=== PATIENT | male | born 1935 | race Caucasian/White ===

== ENCOUNTER → 2018-12-24 | Outpatient (CLI) | payer MEDICARE, OTHER | END | disposition home or self-care (01) | LOC: SHCH 10:00 | PROVIDERS: ATTEND Internal Medicine Cardiovascular Disease | DX: I73.9 Peripheral vascular disease, unspecified (principal) | CPT/HCPCS: 93922 ==

== ENCOUNTER 2020-11-20 07:54 | Inpatient (IN) | payer MEDICARE, OTHER ==
[~2020-11-20] VITALS: Ht 177.8 cm; Wt 76.1 kg
[2020-11-20 08:14] VITALS: BP 169/70
[2020-11-20 08:15] LABS: APPEARANCE,URINE Clear (CLEAR); BILIRUBIN,URINE Negative (NEGATIVE); COLOR,URINE Yellow (YELLOW); GLUCOSE, URINE (UA) >=1000 mg/dL (NEGATIVE); KETONES,URINE 15 mg/dL (NEGATIVE); LEUKOCYTE ESTERASE ,URINE Negative (NEGATIVE); NITRATE,URINE Negative (NEGATIVE); OCCULT BLOOD,URINE Negative (NEGATIVE); PROTEIN,URINE POS 1+ mg/dL (NEGATIVE)
[2020-11-20 08:23] LABS: BASOPHILS % (AUTO) 0.7 % (0.0-5.0); EOSINOPHILS % (AUTO) 0.5 % (0.0-8.0); HEMATOCRIT 42.3 % (42-54); LYMPHOCYTES % (AUTO) 15.4 % (21.0-51.0); MEAN CORPUSCULAR HEMOGLOBIN 29.2 pg (27.0-33.0); MEAN CORPUSCULAR HGB CONC 33.3 g/dL (32.0-36.0); MEAN CORPUSCULAR VOLUME 87.6 fL (79-99); MONOCYTES % (AUTO) 5.1 % (3.0-13.0); NEUTROPHILS % (AUTO) 77.9 % (40.0-77.0); PLATELET COUNT (AUTO) 204 K/uL (130-400); RED BLOOD CELL COUNT(AUTO) 4.83 MIL/uL (4.50-6.20); RED CELL DISTRIBUTION WIDTH 12.7 % (11.0-15.5); WHITE BLOOD COUNT (AUTO) 10.7 K/uL (4.8-10.8)
[2020-11-20] MEDS ORDERED: MAG/ALUM/SIMETH 30 ML UDCUP PO SCH (08:30)
[2020-11-20] MEDS ORDERED: ONDANSETRON 4MG INJ IVP SCH (08:30)
[2020-11-20] MEDS ORDERED: LIDOCAINE HCL 2% VISCOUS 15 ML UDCUP PO SCH (08:30)
[2020-11-20] MEDS ORDERED: LACTATED RINGERS 1000ML 1,000 ML IV SCH (08:30)
[2020-11-20] MEDS ORDERED: KETOROLAC 15MG/ML VIAL (15MG/ML) IV SCH (08:30)
[2020-11-20 08:33] LABS: BACTERIA,URINE Rare /HPF (None Seen); RBC,URINE None Seen /HPF (0-1); SQUAMOUS EPITHELIAL CELL,UR 0-2 /HPF (0-2); WBC,URINE 0-1 /HPF (0-1)
[2020-11-20 08:40] LABS: ALBUMIN 4.2 g/dL (3.5-5.0); BILIRUBIN,TOTAL 0.4 mg/dL (0.2-1.0); CREATININE 1.4 mg/dL (0.5-1.5); POTASSIUM 4.2 mmol/L (3.5-5.1); TOTAL PROTEIN, SERUM 8.1 g/dL (6.0-8.3)
[2020-11-20] MEDS ORDERED: ACETAMINOPHEN 325 MG TAB PO PRN (11:30)
[2020-11-20] MEDS ORDERED: ZOSYN 3.375GM+NS 50ML 50 ML IV SCH ×2 (11:30→13:00)
[2020-11-20] MEDS: LACTATED RINGERS 1000ML 1,000 ML IV SCH (11:30)
[2020-11-20] MEDS ORDERED: HYDRALAZINE 20MG/ML VIAL IV PRN (11:30)
[2020-11-20] MEDS ORDERED: ONDANSETRON 4MG INJ IV PRN (11:30)
[2020-11-20] MEDS ORDERED: MORPHINE 4 MG SYG IV PRN (11:30)
[2020-11-20] MEDS ORDERED: 0.9%NACL 50ML 50 ML IV ONE (11:47)
[2020-11-20] MEDS: FAMOTIDINE 20MG VIAL IV SCH (11:51)
[2020-11-20 12:44] LABS: HEMOGLOBIN A1C 7.8 % (4.0-6.0)
[2020-11-20 13:00] VITALS: BP 165/96
[2020-11-20 13:24] LABS: AMPHET/METH SCREEN,URINE NEGATIVE (NEGATIVE); BARBITURATE SCREEN, URINE NEGATIVE (NEGATIVE); BENZODIAZEPINES SCREEN,URINE NEGATIVE (NEGATIVE); CANNABINOID SCREEN,URINE NEGATIVE (NEGATIVE); COCAINE SCREEN,URINE NEGATIVE (NEGATIVE); OPIATE SCREEN,URINE NEGATIVE (NEGATIVE); PHENCYCLIDINE SCREEN,URINE NEGATIVE (NEGATIVE)
[2020-11-20 14:38] LABS: CHOLESTEROL 139 mg/dL (<200); HDL CHOLESTEROL 56 mg/dL (29-71); LDL DIRECT 61 mg/dL (0-99); TRIGLYCERIDES 125 mg/dL (30-200)
[2020-11-20 16:00] VITALS: BP 148/73
[2020-11-20] MEDS ORDERED: INSULIN HUMULIN R 100 UNIT/ML 3ML SQ SCH (16:30)
[2020-11-20] MEDS ORDERED: AMLODIPINE 5 MG TAB PO ONE (18:00)
[2020-11-20] MEDS: INSULIN HUMULIN R 100 UNIT/ML 3ML SQ SCH (18:00)
[2020-11-20] MEDS ORDERED: LOSARTAN 50 MG TABLET PO SCH (18:00)
[2020-11-20 20:13] VITALS: BP 124/76
[2020-11-20] MEDS ORDERED: AMLODIPINE 5 MG TAB ONE (20:46)
[2020-11-20] MEDS: ZOSYN 3.375GM+NS 50ML 50 ML IV SCH (20:56)
[2020-11-20 23:55] VITALS: BP 149/68
[2020-11-21 03:44] VITALS: BP 139/68
[2020-11-21 05:30] LABS: BASOPHILS % (AUTO) 0.4 % (0.0-5.0); EOSINOPHILS % (AUTO) 0.2 % (0.0-8.0); HEMATOCRIT 41.9 % (42-54); LYMPHOCYTES % (AUTO) 8.9 % (21.0-51.0); MEAN CORPUSCULAR HEMOGLOBIN 29.3 pg (27.0-33.0); MEAN CORPUSCULAR HGB CONC 33.4 g/dL (32.0-36.0); MEAN CORPUSCULAR VOLUME 87.7 fL (79-99); MONOCYTES % (AUTO) 9.9 % (3.0-13.0); NEUTROPHILS % (AUTO) 80.1 % (40.0-77.0); PLATELET COUNT (AUTO) 209 K/uL (130-400); RED BLOOD CELL COUNT(AUTO) 4.78 MIL/uL (4.50-6.20); RED CELL DISTRIBUTION WIDTH 12.8 % (11.0-15.5); WHITE BLOOD COUNT (AUTO) 12.3 K/uL (4.8-10.8)
[2020-11-21] MEDS: ZOSYN 3.375GM+NS 50ML 50 ML IV SCH ×3 (05:45→20:36)
[2020-11-21 05:52] LABS: ALBUMIN 3.7 g/dL (3.5-5.0); BILIRUBIN,TOTAL 1.1 mg/dL (0.2-1.0); CREATININE 1.5 mg/dL (0.5-1.5); POTASSIUM 4.3 mmol/L (3.5-5.1); TOTAL PROTEIN, SERUM 7.5 g/dL (6.0-8.3)
[2020-11-21] MEDS: INSULIN HUMULIN R 100 UNIT/ML 3ML SQ SCH ×4 (06:00→16:44)
[2020-11-21 07:30] VITALS: BP 152/87
[2020-11-21] MEDS: LACTATED RINGERS 1000ML 1,000 ML IV SCH ×2 (07:30→18:00)
[2020-11-21] MEDS ORDERED: ENOXAPARIN SODIUM 30 MG/0.3 ML SQ SCH (09:00)
[2020-11-21] MEDS: FAMOTIDINE 20MG VIAL IV SCH (09:44)
[2020-11-21] MEDS: AMLODIPINE 5 MG TAB PO SCH (09:44)
[2020-11-21 11:00] VITALS: BP 165/80
[2020-11-21] MEDS ORDERED: AMLO-258 PO (11:31)
[2020-11-21] MEDS ORDERED: ROSU5TAB12 PO (11:31)
[2020-11-21] MEDS ORDERED: LOSA100T58 PO (11:31)
[2020-11-21] MEDS ORDERED: MELA1TAB21 PO (11:31)
[2020-11-21] MEDS ORDERED: EZET10TA48 PO (11:31)
[2020-11-21] MEDS ORDERED: METO25TA6 PO (11:31)
[2020-11-21] MEDS ORDERED: VITAD50000 PO (11:31)
[2020-11-21] MEDS ORDERED: METF-444 PO (11:31)
[2020-11-21] MEDS ORDERED: AEC81 PO (11:31)
[2020-11-21] MEDS ORDERED: SEMA1PEN3 SQ (11:31)
[2020-11-21] MEDS: METOPROLOL TARTRATE 25 MG TAB PO SCH (13:15)
[2020-11-21] MEDS ORDERED: LOSARTAN 50 MG TABLET PO SCH (13:30)
[2020-11-21 16:00] VITALS: BP 142/64
[2020-11-21 19:53] VITALS: BP 167/86
[2020-11-21 23:35] VITALS: BP 162/77
[2020-11-22] VITALS (24 sets, daily range): BP systolic 137–160; BP diastolic 68–91
[2020-11-22] MEDS: ZOSYN 3.375GM+NS 50ML 50 ML IV SCH ×5 (04:47→19:48)
[2020-11-22 05:46] LABS: BASOPHILS % (AUTO) 0.2 % (0.0-5.0); EOSINOPHILS % (AUTO) 0.3 % (0.0-8.0); HEMATOCRIT 38.7 % (42-54); MEAN CORPUSCULAR HEMOGLOBIN 29.6 pg (27.0-33.0); MEAN CORPUSCULAR HGB CONC 33.9 g/dL (32.0-36.0); MEAN CORPUSCULAR VOLUME 87.4 fL (79-99); MONOCYTES % (AUTO) 9.7 % (3.0-13.0); NEUTROPHILS % (AUTO) 81.2 % (40.0-77.0); PLATELET COUNT (AUTO) 176 K/uL (130-400); RED BLOOD CELL COUNT(AUTO) 4.43 MIL/uL (4.50-6.20); WHITE BLOOD COUNT (AUTO) 17.6 K/uL (4.8-10.8)
[2020-11-22] MEDS: INSULIN HUMULIN R 100 UNIT/ML 3ML SQ SCH ×4 (06:00→17:37)
[2020-11-22 06:02] LABS: ALBUMIN 3.1 g/dL (3.5-5.0); BILIRUBIN,TOTAL 1.2 mg/dL (0.2-1.0); CREATININE 1.5 mg/dL (0.5-1.5); POTASSIUM 3.8 mmol/L (3.5-5.1); TOTAL PROTEIN, SERUM 7.2 g/dL (6.0-8.3)
[2020-11-22] MEDS: FAMOTIDINE 20MG VIAL IV SCH (09:00)
[2020-11-22] MEDS: AMLODIPINE 5 MG TAB PO SCH (09:00)
[2020-11-22] MEDS: LACTATED RINGERS 1000ML 1,000 ML IV SCH (09:24)
[2020-11-22] MEDS ORDERED: 0.9%NACL 1000ML 1,000 ML IV ONE (09:33)
[2020-11-22] MEDS ORDERED: DEXAMETHASONE SOD PHOSPHATE 10MG/ML 1ML VIAL ONE (09:42)
[2020-11-22] MEDS ORDERED: PROPOFOL 10 MG/ML 20ML VIAL IV ONE (09:42)
[2020-11-22] MEDS ORDERED: MIDAZOLAM HCL 1 MG/ML 2ML VIAL ONE (09:42)
[2020-11-22] MEDS ORDERED: ONDANSETRON 4MG INJ ONE (09:42)
[2020-11-22] MEDS ORDERED: FENTANYL CITRATE PF 50 MCG/1 ML 5ML AMP IV ONE (09:43)
[2020-11-22] MEDS ORDERED: LIDOCAINE HCL 1% 20 ML VIAL ONE (10:09)
[2020-11-22] MEDS ORDERED: BUPIVACAINE/PF 0.5% 30ML VIAL ONE (10:09)
[2020-11-22] MEDS ORDERED: MEPERIDINE-PF 25 MG/ML SYG ONE (14:20)
[2020-11-22] MEDS ORDERED: AMLODIPINE 5 MG TAB PO SCH (21:00)
[2020-11-22] MEDS ORDERED: METOPROLOL TARTRATE 25 MG TAB ONE (21:20)
[2020-11-22] MEDS: METOPROLOL TARTRATE 25 MG TAB PO SCH (21:22)
[2020-11-23] VITALS: BP 154/68
[2020-11-23] MEDS: INSULIN HUMULIN R 100 UNIT/ML 3ML SQ SCH ×3 (00:36→12:33)
[2020-11-23] MEDS: LACTATED RINGERS 1000ML 1,000 ML IV SCH (00:48)
[2020-11-23 03:41] VITALS: BP 162/86
[2020-11-23 04:30] VITALS: BP 158/82
[2020-11-23 05:16] LABS: BASOPHILS % (AUTO) 0.1 % (0.0-5.0); EOSINOPHILS % (AUTO) 2.1 % (0.0-8.0); HEMATOCRIT 35.1 % (42-54); LYMPHOCYTES % (AUTO) 6.5 % (21.0-51.0); MEAN CORPUSCULAR HEMOGLOBIN 29.9 pg (27.0-33.0); MEAN CORPUSCULAR HGB CONC 33.9 g/dL (32.0-36.0); MEAN CORPUSCULAR VOLUME 88.2 fL (79-99); NEUTROPHILS % (AUTO) 82.9 % (40.0-77.0); PLATELET COUNT (AUTO) 154 K/uL (130-400); RED BLOOD CELL COUNT(AUTO) 3.98 MIL/uL (4.50-6.20)
[2020-11-23 05:36] LABS: ALANINE AMINOTRANSFERASE 351 U/L (12-78); ALBUMIN 2.5 g/dL (3.5-5.0); ASPARTATE AMINOTRANSFERASE 238 U/L (10-37); BILIRUBIN,TOTAL 1.5 mg/dL (0.2-1.0); CARBON DIOXIDE 22 mmol/L (21-32); CHLORIDE 106 mmol/L (101-111); CREATININE 1.5 mg/dL (0.5-1.5); GLOMERULAR FILTR. RATE CALC 48 mL/min (>60); GLUCOSE,RANDOM 278 mg/dL (70-105); POTASSIUM 3.8 mmol/L (3.5-5.1); SODIUM SERUM 139 mmol/L (136-145); TOTAL PROTEIN, SERUM 6.3 g/dL (6.0-8.3); UREA NITROGEN, BLOOD 22 mg/dL (7-18)
[2020-11-23] MEDS: ZOSYN 3.375GM+NS 50ML 50 ML IV SCH ×2 (05:46→12:35)
[2020-11-23 05:57] LABS: LIPASE < 50 U/L (114-286)
[2020-11-23 07:43] VITALS: BP 164/76
[2020-11-23] MEDS ORDERED: LOSARTAN 100 MG TABLET PO SCH (09:00)
[2020-11-23] MEDS: METOPROLOL TARTRATE 25 MG TAB PO SCH (09:27)
[2020-11-23] MEDS: FAMOTIDINE 20MG VIAL IV SCH (09:27)
[2020-11-23] MEDS ORDERED: LEVO500T89 PO (10:38)
[2020-11-23 11:00] VITALS: BP_SYST 112; BP_SYST 159; BP_DIAS 70; BP_DIAS 82
[2020-11-23 16:00] VITALS: BP 160/85
== END 2020-11-23 19:25 | disposition home or self-care (01) | DRG 417 ==
LOC: EDH 07:54 → EDHIP 11:02 → 3CH 12:31
PROVIDERS: ADMIT Internal Medicine; ATTEND Internal Medicine
PROC: 0FT44ZZ Resection of Gallbladder, Percutaneous Endoscopic Approach (ICD-10-PCS; principal; 2020-11-22 10:15)
DX: K80.12 Calculus of gallbladder with acute and chronic cholecystitis without obstruction (principal); K85.10 Biliary acute pancreatitis without necrosis or infection; I10 Essential (primary) hypertension; E78.5 Hyperlipidemia, unspecified; K21.9 Gastro-esophageal reflux disease without esophagitis; E78.00 Pure hypercholesterolemia, unspecified; I25.10 Atherosclerotic heart disease of native coronary artery without angina pectoris; K82.8 Other specified diseases of gallbladder; R79.89 Other specified abnormal findings of blood chemistry; E11.51 Type 2 diabetes mellitus with diabetic peripheral angiopathy without gangrene; K66.0 Peritoneal adhesions (postprocedural) (postinfection); Z79.899 Other long term (current) drug therapy; Z95.5 Presence of coronary angioplasty implant and graft; Z79.4 Long term (current) use of insulin
CPT/HCPCS: 36415; 71045; 74176; 74181; 76705; 78226; 80053; 80061; 80305; 81001; 82150; 82550; 82948; 83036; 83690; 84484; 85025; 93005; A9537; G0378; J1100; J1650; J1815; J1885; J2175; J2250; J2405; J2543; J2704; J3010; J3490; J7030; J7120

== ENCOUNTER → 2023-06-24 | Outpatient (CLI) | payer MEDICARE ==
[~2023-06-24] MED LIST: AEC81 PO; AMLO-258 PO; EZET10TA48 PO; LEVO-70 PO; LOSA100T59 PO; MELA1TAB73 PO; METF-444 PO; METO25TA6 PO; ROSU5TAB12 PO; SEMA1PEN3 SQ; VITAD50000 PO
[2023-06-24 16:18] LABS: BASOPHILS # (AUTO) 0.04 K/uL (0.00-0.20); BASOPHILS % (AUTO) 0.6 % (0.0-5.0); EOSINOPHILS # (AUTO) 0.03 K/uL (0.00-0.70); EOSINOPHILS % (AUTO) 0.5 % (0.0-8.0); HEMATOCRIT 47.5 % (42-54); IMMATURE GRANULOCYTE ABSOLUTE 0.03 K/uL (0-1); LYMPHOCYTES # (AUTO) 1.6 K/uL (1.0-4.8); LYMPHOCYTES % (AUTO) 24.4 % (21.0-51.0); MEAN CORPUSCULAR HEMOGLOBIN 29.9 pg (27.0-33.0); MEAN CORPUSCULAR HGB CONC 33.9 g/dL (32.0-36.0); MEAN CORPUSCULAR VOLUME 88.3 fL (79-99); MONOCYTES # (AUTO) 0.8 K/uL (0.1-1.0); MONOCYTES % (AUTO) 11.7 % (3.0-13.0); NEUTROPHILS % (AUTO) 62.3 % (40.0-77.0); PLATELET COUNT (AUTO) 206 K/uL (130-400); RED BLOOD CELL COUNT(AUTO) 5.38 MIL/uL (4.50-6.20); RED CELL DISTRIBUTION WIDTH 13.9 % (11.0-15.5); WHITE BLOOD COUNT (AUTO) 6.4 K/uL (4.8-10.8)
[2023-06-24 16:52] LABS: CREATININE 2.1 mg/dL (0.5-1.3); POTASSIUM 4.2 mmol/L (3.5-5.1)
== END | disposition home or self-care (01) ==
LOC: LAB 15:09
PROVIDERS: ATTEND Internal Medicine Cardiovascular Disease
DX: I10 Essential (primary) hypertension (principal)
CPT/HCPCS: 36415; 80048; 85025

== ENCOUNTER 2025-02-05 06:09 | Day surgery (SDC) | payer MEDICARE, OTHER ==
[2025-02-01 11:29] LABS: IMMATURE GRANULOCYTE ABSOLUTE 0.06 K/uL (0-1); NUCLEATED RED BLOOD CELLS 0.0 % (0.0-0.19); PLATELET COUNT (AUTO) 195 K/uL (130-400); RED BLOOD CELL COUNT(AUTO) 5.32 MIL/uL (4.50-6.20); RED CELL DISTRIBUTION WIDTH 13.1 % (11.0-15.5); WHITE BLOOD COUNT (AUTO) 8.0 K/uL (4.8-10.8)
[2025-02-01 11:37] LABS: CREATININE 1.9 mg/dL (0.5-1.3); GLOMERULAR FILTR. RATE CALC 34.0 mL/min (>90); GLUCOSE,RANDOM 258.0 mg/dL (70-105); SODIUM SERUM 139.0 mmol/L (136-145); UREA NITROGEN, BLOOD 29.0 mg/dL (7-18)
[2025-02-01 11:39] LABS: INR 1.03 (0.85-1.15)
[2025-02-01 11:44] VITALS: BP 141/66; PULSE 67; RESP 17; TEMP 98.4
--- NOTE | 2025-02-01 12:06 | EKG ---
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
[~2025-02-05] VITALS: Ht 177.8 cm; Wt 70.8 kg
[2025-02-05] VITALS (17 sets, daily range): BP systolic 118–168; BP diastolic 58–81; PULSE 51–65; RESP 12–20; TEMP 96.8–97.7
[2025-02-05] MEDS: 0.9%NACL 1000ML 1,000 ML IV ONE (06:53)
[2025-02-05] MEDS ORDERED: LIDOCAINE HCL 1% 20 ML VIAL ONE (07:24)
[2025-02-05] MEDS ORDERED: LIDOCAINE PF 100MG/5ML (2%) SYRINGE 5ML ONE (07:28)
[2025-02-05] MEDS ORDERED: MIDAZOLAM HCL 1 MG/ML 2ML VIAL ONE (07:30)
[2025-02-05] MEDS ORDERED: PROMETHAZINE HCL 25 MG/ML 1ML AMPULE IM PRN (08:30)
[2025-02-05] MEDS ORDERED: NEOSTIGMINE METHYLSULFATE 1MG/ML IV ONE (09:09)
[2025-02-05] MEDS ORDERED: GLYCOPYRROLATE 0.2 MG/ML 5 ML VIAL ONE (09:09)
--- NOTE | 2025-02-05 09:48 | OP ---
Operative Note: DATE OF PROCEDURE: 02/05/25 SURGEON: BOBBY RICO DO GENERAL SERVICE OFFICER: None ANESTHESIA: General and regional ANESTHESIOLOGIST/MEDIA LAW FACULTY MEMBER: BOB Blake PREOPERATIVE DIAGNOSIS: Right inguinal hernia POSTOPERATIVE DIAGNOSIS: Indirect right inguinal hernia SYNOPSIS: None PROCEDURE: Robotic assisted laparoscopic right inguinal hernia repair with mesh ESTIMATED BLOOD LOSS: 5 cc INDICATIONS: This is an 89-year-old male with intermittently painful right groin swelling. On physical exam patient has a reducible right inguinal hernia. Patient was cleared by PCP and cardiac. He has held his antiplatelet medication except for aspirin. We discussed the procedure in detail. All questions were answered. Patient expressed understanding and agreement with plan. DESCRIPTION OF PROCEDURE: Patient was placed on the operating table in the supine position. After adequate sedation the patient was intubated by anesthesia. A Guerrero was placed. The patient was then placed in lithotomy position. Perioperative antibiotics were given. The patient's abdomen was prepped and draped in the usual sterile fashion. A timeout was performed. A1 cm skin incision was made in the left upper quadrant baez's point. The peritoneal cavity was accessed using a5 mm Optiview technique. The abdomen was insufflated. The patient tolerated insufflation well. A laparoscopic camera was inserted. All 4 quadrants of the abdominal cavity were inspected and found to be grossly normal with the exception of a right indirect inguinal defect. No inguinal hernia was apparent on the left side. 3 additional 8 mm robotic ports were placed in the right and left hemiabdomen , and midline under direct visualization. The patient was placed in headdown right side up position and the robot was docked. A peritoneal flap was created 6 cm cephalad to the defect. The hernia sac was encircled and removed from the spermatic cord structures using a combination of blunt and electrocautery dissection. A for cm cord lipoma was present which was also reduced. A large 3D max right inguinal hernia mesh was placed into the preperitoneal space and affixed using 2 interrupted sutures of 2-0 Vicryl one at the pubic tubercle and the other at the superior lateral aspect of the mesh. The peritoneum was approximated using 3 0 V-Loc in a running fashion. The abdomen was again inspected. The robot was undocked. The robotic ports were removed under direct visualization and found to be hemostatic. The skin was approximated using 4-0 Monocryl in a subcuticular fashion and dressed with Dermabond. All instrument, needle, and sponge counts were correct at the end of the procedure. The Guerrero was removed. The patient was aroused from sedation, extubated, and transferred to the stanesthesia care unit in good condition. BOBBY RICO DO Feb 05, 2025 09:48
--- NOTE | 2025-02-05 10:50 | NUR ---
POST-OP RECOVERY 4 INCISIONS TO ANTERIOR ABDOMEN. BINDER IN PLACE. NO ACTIVE BLEEDING OR DRAINAGE. NO REDNESS OR SWELLING NOTED. SCROTUM SUPPORT IN PLACE. DERMABOND TO ALL 4 INCISIONS.
== END 2025-02-05 11:23 | disposition home or self-care (01) ==
LOC: DAH 06:09
PROVIDERS: ATTEND Student in an Organized Health Care Education/Training Program
DX: K40.90 Unilateral inguinal hernia, without obstruction or gangrene, not specified as recurrent (principal); I10 Essential (primary) hypertension; E78.5 Hyperlipidemia, unspecified; E11.9 Type 2 diabetes mellitus without complications; Z79.01 Long term (current) use of anticoagulants; Z90.49 Acquired absence of other specified parts of digestive tract; Z80.9 Family history of malignant neoplasm, unspecified; Z79.899 Other long term (current) drug therapy; Z98.890 Other specified postprocedural states
CPT/HCPCS: 80048; 85025; 85610; 85730; 36415; 93005; 49650; 82948 ×2; J1100; A4223 ×2; A4600; S2900; A4663; J7030 ×2; A4344; J3010 ×2; J3490 ×2; J2003; J2250; J2704; J2405; J2710; J2795; J0690 ×2; C1769; A4930 ×3; C1781; A4215; A4213; A4222; A4221; A4216; J0665